=== PATIENT | female | born 1995 | race Hispanic/Latino ===

== ENCOUNTER 2018-06-20 15:21 | Outpatient (CLI) | payer SELFPAY ==
--- NOTE | 2018-06-20 15:46 | RAD ---
CHEST TWO VIEWS 06/20/18 The heart is normal in size. The right hemidiaphragm is somewhat elevated, probably its chronic posit ion in this patient. There is no sign of active thoracic disease. No infiltrate, cavity, effusion, or adenopathy was seen. The trachea is midline. IMPRESSION: No acute thoracic findings. POS: HOME
== END 2018-06-20 15:22 | disposition home or self-care (01) ==
LOC: BURRAD 15:21
PROVIDERS: ATTEND Physician Assistant
DX: R76.11 Nonspecific reaction to tuberculin skin test without active tuberculosis (principal)
CPT/HCPCS: 71046